=== PATIENT | female | born 1985 | race Hispanic/Latino ===

== ENCOUNTER 2020-01-22 09:08 | Outpatient (CLI) | payer OTHER, SELFPAY ==
--- NOTE | 2020-01-22 09:30 | NEURO_ITS ---
TEST: ELECTROENCEPHALOGRAM DIAGNOSIS: SEIZURE DISORDER PATIENT NUMBER: [id number] EEG NUMBER: [id number] RECORDING DATE: 01/22/20 CLINICAL HISTORY: Patient has history of seizures. She has not had a seizure in 13 years. She has been off of seizure meds for 10 months due to with no issues. CONDITION OF RECORDING: Awake, drowsy and sleep EEG DESCRIPTION: Basic resting occipital frequency consists of moderate amount of poorly organized low voltage 8-10hz alpha mixed with low voltage 15-18hz beta. Photic stimulation produced normal drive. Hyperventilation produced normal and symmetrical build-up. During drowsiness low voltage beta activity is seen diffusely mixed with waxing and waning posterior alpha rhythms. Bilateral symmetrical sleep activity is seen during sleep. Nonparoxysmal. Nonfocal. Nonlateralizing. IMPRESSION: Questionably abnormal record due to intermittent theta activity bilaterally. There is no evidence of paroxysmal discharges. Clinical correlation recommended. [facility]
== END 2020-01-22 09:09 | disposition home or self-care (01) ==
PROVIDERS: PCP Registered Nurse; Visit Provider Psychiatry & Neurology Neurology
DX: G40.909 Epilepsy, unspecified, not intractable, without status epilepticus (principal)
CPT/HCPCS: 95816

== ENCOUNTER 2022-10-04 12:53 | Emergency (ER) | payer OTHER, SELFPAY ==
[2022-10-04 13:01] VITALS: BP 93/70; PULSE 80; RESP 20; TEMP 37.2; O2SAT 100
--- NOTE | 2022-10-04 13:02 | ED.URI ---
HPI - URI/Sore Throat General Chief Complaint: Upper Respiratory Infection Stated Complaint: Weakness, Fever Time Seen by Provider: 10/04/22 13:03 Source: patient, RN notes reviewed and old records reviewed Mode of arrival: ambulatory Limitations: no limitations History of Present Illness HPI Narrative: 37-year-old female presents to the [facility] with concerns for feeling hot through out her body, shaky legs and requesting to have blood work done Related Data Home Medications Medication Instructions Recorded Confirmed norethindrone (contraceptive) 0.35 mg 10/04/22 mg tablet Allergies Allergy/AdvReac Type Severity Reaction Status Date / Time No Known Allergies Allergy Verified 10/04/22 13:00 Review of Systems Review of Systems: All systems reviewed & are unremarkable except as noted in HPI and below Constitutional: Constitutional: Reports as per HPI and Reports body ache(s) Eyes: Eyes: Reports no additional eye complaints ENT: Reports system reviewed and no additional complaints, except as documented Cardiovascular: Cardiovascular: Reports no additional cardiovascular complaints, Denies chest pain and Denies dyspnea Respiratory: Respiratory: Reports no additional respiratory complaints, Denies chest congestion, Denies cough and Denies dyspnea Gastrointestinal: Gastrointestinal: Reports no additional gastrointestinal complaints, Denies abdominal pain, Denies nausea and Denies vomiting Musculoskeletal: Musculoskeletal: Reports no additional musculoskeletal complaints Integumentary/Breasts: Skin/Breast: Reports system reviewed and no additional complaints, except as docu Neurologic: Reports system reviewed and no additional complaints, except as documented Psychiatric: Psychiatric: Reports no additional psychiatric complaints Allergic/Immunologic: Allergic/Immunologic: Reports no additional allergic/immunologic complaints PMFSH Social History Social History Smoking status: Never smoker Alcohol intake: never Comments At the time of my signature, I reviewed and agree with the nursing past medical, surgical, social, and family history. There is no relevant family history pertinent to the patient complaint. Exam Const: General: cooperative, healthy appearing, comfortable, no acute distress, well developed, alert and well nourished Nutritional Appearance: well nourished Orientation/consciousness: patient oriented x3 Limitations: no limitations HENMT: Head: normal to inspection Ears: hearing grossly normal bilaterally and external ears normal Face/Nose/Sinus: Normal external nose present, Normal nares present, Normal nasal mucous membranes and turbinates present and normal facial exam Face and sinus: normal facial exam Mouth: Yes Normal oral and palatal mucosa present, Yes lip normal and Yes moist mucous membranes Throat: posterior oropharynx normal and uvula midline Eyes: General: appearance normal, both eyes and all related structures Alignment and Position: alignment normal Periorbital: periorbital findings normal Conjunctivae: conjunctivae normal Pupils: Equal, round and reactive pupils present EOM: EOMs intact bilaterally Neck: Neck: normal visual inspection, full ROM, no lymphadenopathy and no meningeal signs Chest: Chest palpation & inspection: normal inspection of the chest Resp: Effort & Inspection: normal respiratory effort and able to speak in complete sentences Auscultation: clear to auscultation bilaterally, no crackles, no rales, no rhonchi and no wheezes Cardio: Rate: regular rate Rhythm: regular rhythm Back/Spine/Pelvis: Cervical Spine: cervical ROM normal Thoracic/Lumbar Spine: No thoracic spinal tenderness Skin: General skin exam: normal color and no rashes or lesions noted Lesions: no lesions Rashes: no rashes Wounds: no wounds Neuro: General: patient oriented x3, gait normal, tone normal, moves all extremities
== END 2022-10-04 13:16 | disposition home or self-care (01) ==
PROVIDERS: Emergency Provider Nurse Practitioner; PCP Registered Nurse
DX: R52 Pain, unspecified (principal)
CPT/HCPCS: 99211; G0463

== ENCOUNTER 2022-11-01 06:34 | Outpatient (CLI) | payer OTHER, SELFPAY ==
--- NOTE | 2022-11-01 10:12 | WPDNEUROLOGY ---
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 Bilateral symmetrical sleep activity seen during sleep. Photic stimulation produced normal drive. Hyperventilation not done. Non paroxysmal. Nonfocal. Nonlateralizing. IMPRESSION No significant abnormalities noted
== END 2022-11-01 06:35 | disposition home or self-care (01) ==
LOC: ANHNEURO 06:36
PROVIDERS: PCP Registered Nurse; Visit Provider Psychiatry & Neurology Neurology
DX: G40.909 Epilepsy, unspecified, not intractable, without status epilepticus (principal)
CPT/HCPCS: 95816

== ENCOUNTER 2024-02-27 14:52 | Outpatient (CLI) | payer OTHER, SELFPAY ==
--- NOTE | ~2024-02-27 | MM_ITS ---
EXAMINATION: MM screening rachel BI w cheli HISTORY: Screening TECHNIQUE: Craniocaudal and mediolateral oblique 3-D tomosynthesis images were obtained and synthetic 2-D images were generated. CAD analysis was submitted and interpreted. COMPARISON: No prior mammogram is available for comparison at this institution. BREAST PARENCHYMAL COMPOSITION: There are scattered areas of fibroglandular density. FINDINGS: There is no evidence of suspicious mass, calcification, or architectural distortion to sugg est malignancy in either breast. There has been no suspicious interval change. IMPRESSION: 1. No mammographic evidence of malignancy. 2. Recommend routine screening mammography in one year. BI-RADS Category 1: Negative Reviewed, dictated and finalized at location B.
== END 2024-02-27 14:53 | disposition home or self-care (01) ==
LOC: ANHIMG 14:52
PROVIDERS: PCP Registered Nurse; Visit Provider Physician Assistant
DX: Z12.31 Encounter for screening mammogram for malignant neoplasm of breast (principal)
CPT/HCPCS: 77063; 77067

== ENCOUNTER 2024-03-26 08:27 | Emergency (ER) | payer OTHER, SELFPAY ==
[2024-03-26 08:40] VITALS: BP 114/69; PULSE 75; RESP 16; TEMP 36.4; O2SAT 99
--- NOTE | 2024-03-26 08:43 | ED.URI ---
HPI - URI/Sore Throat General Chief Complaint: Upper Respiratory Infection Stated Complaint: drainage in nose. Mole on left side of face Time Seen by Provider: 03/26/24 08:42 Source: patient and poiser Mode of arrival: ambulatory Limitations: no limitations History of Present Illness HPI Narrative: Anne is a 38-year-old female patient presenting to the clinic today with complaints of draining in her nose and a possible mold to the left side of her face. She reports that draining in her nose is been going on for approximately 2 weeks. No fever, chills, body aches, sore throat. Reports some clear nasal drainage and that her nose feels dry. Does have an occasional nonproductive cough. Also concerned about a skin tag to the left side of face. Had an appointment with her primary care doctor this morning however they missed the appointment so that prompted them to come into the [facility] today. MD elicited complaint: cough and nasal congestion Related Data Home Medications Medication Instructions Recorded Confirmed norethindrone (contraceptive) 0.35 mg 10/04/22 01/28/24 mg tablet Allergies Allergy/AdvReac Type Severity Reaction Status Date / Time No Known Allergies Allergy Verified 03/26/24 08:44 Review of Systems Review of Systems: Pertinent positives per HPI. Patient denies any fever, chills, rash, headache, visual changes, dizziness, cough, shortness of breath, chest pain, palpitations, nausea, vomiting, diarrhea, constipation, abdominal pain, or any urinary issues. 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 Social History Social History Smoking status: Never smoker Alcohol intake: never Substance use: never Substance use type: does not use Do You Feel Safe in your Home?: Yes Lack of Transportation: No Lack of Food: Never True Current Housing: I Have Housing Concerned About Future Housing: No Difficulty Paying Gas/Electric Bills: No Difficulty Paying for Meds: No Currently Unemployed: No Education: High School Diploma/GED Difficulty w/ Childcare or Family Care: No Living arrangements: with family Gender identity (if verbalized by the patient): Female Comments At the time of my signature, I reviewed and agree with the nursing past medical, surgical, social, and family history. There is no relevant family history pertinent to the patient complaint. Exam Narrative: General: Well-developed, well nourished, in no apparent distress Head: Normocephalic, atraumatic Eyes: Pupils equally round and reactive to light bilaterally, EOM intact, sclera and conjunctive clear, no discharge, lids normal Ears: TMs intact and clear, ear canals clear, no drainage, grossly hearing normal. Nose: Nares patent, clear discharge, moderate inflammation, no sinus tenderness. Mouth: Oral pharynx without lesions or masses, good dentition, MMM. Neck: Supple, trachea midline, no enlargement of anterior or posterior cervical nodes, no thyroid masses or goiter palpable. Cardio: Regular rate and rhythm, s1 and s2 normal, no murmur appreciated. Resp: Clear to auscultation bilaterally, no rhonchi, rales, wheezing or rubs Integumentary: [place], warm, and dry, skin tag to the left cheek Course Course Emergency Course: Portions of this record may have been created with voice recognition software. Level of Care: Express Care Visit Vital Signs Vital signs: Vital Signs Temperature 36.4 C 03/26/24 08:40 Pulse Rate 75 03/26/24 08:40 Respiratory Rate 16 03/26/24 08:40 Blood Pressure 114/69 03/26/24 08:40 Pulse Oximetry 99 03/26/24 08:40 Oxygen Delivery Room Air 03/26/24 08:40 Temperature 36.4 C 03/26/24 08:40 Pulse Rate 75 03/26/24 0
== END 2024-03-26 09:14 | disposition home or self-care (01) ==
PROVIDERS: Emergency Provider Nurse Practitioner Family; PCP Physician Assistant
DX: L91.8 Other hypertrophic disorders of the skin (principal); J30.9 Allergic rhinitis, unspecified
CPT/HCPCS: 99213; G0463

== ENCOUNTER 2025-03-04 10:08 | Outpatient (CLI) | payer OTHER, SELFPAY ==
--- OUTSIDE RECORDS SUMMARY | 2025-03-04 10:49 | XMS_ITS | Encounter Summary ---
Author Organization [facility] Address [address] [place] [address] Care Team Providers Care Ict Educator Name Role Phone Sanjeev Walter MD Primary Care Provider + [phone] Reason for Visit * Reason Onset Date Comments Results 02/19/2025 Encounter Details Date Type Department Care Team (Late st Contact Info) Description 02/19/2025 Results Follow-Up [facility] [address] [place] [address] Zee Gupta MD [address] [place] [address] Results Social History Tobacco Use Types Packs/Day Years Used Date Smoking Tobacco: Never Smokeless Tobacco: Never Alcohol Use Standard Drinks/Week Comments No 0 (1 standard drink = 0.6 oz pur e alcohol) Overall Financial Resource Strain (CARDIA) Answe r Date Recorded How hard is it for you to pa y for the very basics like food, housing, medical care, and heating? Not very hard 02/15/2025 [facility] of Occupat ional Health - Occupational Stress Questionnaire Answer Date Recorded Do you feel stress - tense, restless, nervous, or anxious, or unable to sleep at night because your mind is troubled all the time - these days? Not at all 02/15/2025 Hunger Vital Sign Answer Date Recorded Within the past 12 months, y ou worried that your food would run out before you got the money to buy more. Never true 02/16/20 25 Within the past 12 months, t he food you bought just didn't last and you didn't have money to get more. Never true 02/15/2025 PRAPARE - Transportation Answer Date Re corded In the past 12 months, has l ack of transportation kept you from medical appointments or from getting medications? No 10/2024 In the past 12 months, has l ack of transportation kept you from meetings, work, or from getting things needed for daily living? No 02/15/2025 [place] Depression Scale Answer Date Recorded [place] Depression Scale Total 0 02/15/2025 The thought of harming myself has occurred to me . Never 02/15/2025 Housing Stability Vital Sign Answer Shawn e Recorded In the last 12 months, was t here a time when you were not able to pay the mortgage or rent on time? No 02/15/2025 In the past 12 months, how m any times have you moved where you were living? 1 02/15/2025 At any time in the past 12 m onths, were you homeless or living in a fpc (including now)? No 02/15/2025 Estimated Date of Delivery Comme nts Yes 09/07/2025 Based on Ultraso und Sex and Gender Information Value Date Recorded Sex Assigned at Not on file Legal Sex Female 6:26 AM CLINICAL RECRUITER Gender Identity Not on file Sexual Orientation Not on file documented as of this encounter Functional Status * Is person deaf or have serious hearing difficulty? Answer Date of Assessment Author No 12/21/2019 1:30 PM Mariluz Swan RN * Is person blind or have serious difficulty seeing? Answer Date of Assessment Author No 12/21/2019 1:30 PM Mariluz Swan RN * Does person have serious difficulty walking/climbing stairs? Answer Date of Assessment Author No 12/21/2019 1:30 PM MAKEDAT Mariluz Koroma RN * Does person have difficulty dressing/bathing? Answer Date of Assessment Author No 12/21/2019 1:30 PM Mariluz Swan RN * Does person have difficulty doing errands alone? Answer Date of Assessment Author No 12/21/2019 1:30 PM Mariluz Swan RN documented as of this encounter Mental Status * Does person have difficulty concentrating/remembering/making decisions? Answer Entry Date Author No 12/21/2019 1:30 PM CDT Mariluz Koroma RN documented in this encounter Progress Notes * Zee Gupta MD - 02/23/2025 3:01 PM CDT PGY-3 Telephone Note LAMP telephone manager ethics used. Notified patient of normal pap results and recommendation for repeat co-testing in 5 years. Continues to deny dysuria, hematuria, urinary frequency. Treatment of bacteriuria not indicated at this time. Zee Gupta MD 02/23/2025 3:00 PM documented in this encounter Plan of Treatment Upcoming Encounters Date Type Department Care Team (Late st Contact Info) Description 03/18/2025 9:00 AM CDT Appointment [facility] [address] [place] [address] [address] [place] [id number] 03/18/2025 10:00 AM CDT Appointment [facility] [address] [place] [address] [address] [place] [address] 04/19/2025 7:30 AM CDT Appointment [facility] [address] [place] [address] [address] [place] [address] documented as of this encounter Visit Diagnoses Not on filedocumented in this encounter Care Teams Ict Educator Relationship Specialty Start Date End Date Sanjeev Walter MD PCP - General Internal Medicine 12/30/17 documented as of this encounter
--- OUTSIDE RECORDS SUMMARY | 2025-03-04 10:49 | XMS_ITS | Clinical Summary ---
Author Organization [facility] Address [address] [place] [address] Care Team Providers Care Dress Fitter Name Role Phone Juan Vargas MD Primary Care Provider [phone] Allergies No known active allergies Medications levETIRAcetam (KEPPRA) 500 mg tablet Take 1.5 tablets (750 mg total) by mouth 2 (two) times a day 90 tablet 5 08/28/2022 Active Active Problems Problem Noted Date Diagnosed Date Arteriovenous disorder 11/24/2008 Social History Tobacco Use Types Packs/Day Years Used Date Smoking Tobacco: Never Personal Safety Answer Date Recorded Getting School Help Needed Not on file 09/09 Comments Unknown Sex and Gender Information Value Date Recorded Sex Assigned at Not on file Legal Sex Female 5:41 AM HOSPICE CLINICAL SUPERVISOR Gender Identity Not on file Sexual Orientation Not on file Obstetrics History Last Filed Vital Signs Vital Sign Reading Time Taken Comments Blood Pressure 116/68 08/28/2022 8:30 AM HOSPICE CLINICAL SUPERVISOR Pulse 91 08/28/2022 8:30 AM HOSPICE CLINICAL SUPERVISOR Temperature 36.8 C (98.3 F) 08/28/2022 5:21 AM HOSPICE CLINICAL SUPERVISOR Respiratory Rate 19 08/28/2022 8:30 AM HOSPICE CLINICAL SUPERVISOR Oxygen Saturation 96% 08/28/2022 8:30 AM HOSPICE CLINICAL SUPERVISOR Inhaled Oxygen Concentration - - Weight 77 kg (169 lb 12.1 oz) 08/28/2022 5:25 AM HOSPICE CLINICAL SUPERVISOR Height 157.5 cm (5' 2) 09/05/2013 9:21 PM HOSPICE CLINICAL SUPERVISOR Body Mass Index 31.05 09/05/2013 9:21 PM HOSPICE CLINICAL SUPERVISOR Plan of Treatment Health Maintenance Due Date Last Done Comments Breast Cancer Screening-Mammogram 1983 Cervical Cancer Screening 1983 Depression Screening 1983 Hepatitis C Screening 1983 Varicella Vaccines (1 of 2 - 13+ 2-dose series) 1996 Hepatitis B Screening 2001 Regular Well Visit/Exam 18-64 2001 HPV Vaccines (1 - 3-dose SCD M series) 2010 Influenza Vaccine (#1) 2025 09/03/2019 DTaP/Tdap/Td Vaccine (3 - Td or Tdap) 09/30/2029 10/01/2019, 09/19/2017 Pneumococcal vaccine <65 Aged Out No longer eligible based on patient's age to complete this topic Insurance [facility] Care Teams Dress Fitter Relationship Specialty Start Date End Date Juan Vargas MD [id number] [address] PCP - General Neurology 08/27/22
--- OUTSIDE RECORDS SUMMARY | 2025-03-04 10:49 | XMS_ITS | Clinical Summary ---
Author Organization [employer] Address [address] 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 This disclosure is being madepursuant to the Care Everywhere program and may not contain all information available regarding this patient. Last updated 18.[employer] Allergies No known active allergies Medications * Be aware that medications may not be up to date on this document. Alwaysverify current medications with the patient. docusate sodium (COLACE) 100 MG capsule Take 1 capsule by mouth 2 times daily 60 capsule 1 8 Active Vit-Fe Fumarate-FA ( LOW IRON) tablet Take 1 tablet by mouth once daily 100 tablet 5 0 Active acetaminophen (TYLENOL) 500 MG tablet Take 1 (one) tablet by mouth every 6 hours as needed (cold sinus) Maximum allowable Acetaminophen amount = 4 Grams (4000 mg) / 24 hours. Active ibuprofen (MOTRIN) 600 MG tablet Take 1 tablet by mouth every 6 hours as needed for Pain 50 tablet 0 Active Additional Information Patient not taking.Reported on 01/29/2020 levETIRAcetam (KEPPRA) 500 MG tablet Take 500 mg by mouth 2 times daily Active levETIRAcetam (Keppra) 750 MG tablet Take 1 (one) tablet by mouth 2 times daily Active folic acid (Folvite) 1 MG tablet Take 1 (one) tablet by mouth once daily Take five tablets by mouth once daily Active aspirin EC (Ecotrin) 81 MG tablet Take 2 tablets (162mg) by mouth daily for pre-eclampsia prevention. 90 tablet 3 5 Active plus iron (Natatab) 29-1 MG tablet Take 1 (one) tablet by mouth once daily 90 tablet 3 5 Active Active Problems Patient Care Coordination No te Formatting of this note migh t be different from the original. [facility] 09/201710/15/19 Enrolled in diaper program form completed and diapers given 11/25/19 Diaper bank form completed. Diapers provided. 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 AVM resolved on subsequent imaging. Filipino speaking patient 09/19/2017 Obesity affecting in second trimester Advanced maternal age in multigravida, third tri mester 38 weeks gestation of Estimated Date of Delivery Comme nts Yes 09/07/2025 Based on Ultraso und Resolved Problems Problem Noted Date Diagnosed Date Resolved Date Threatened labor at term 11/13/2017 Stroke 09/19/2017 12/03/2019 Obesity 09/19/2017 09/03/2019 Chlamydia 09/19/2017 09/03/2019 Encounters Date Type Department Care Team Description 02/22/2025 Telephone [facility]NAL/ EVALUATION UNIT [address] [place], [place] [id number] Jaymie To RN Results 02/19/2025 Results Follow-Up [facility]/ EVALUATION UNIT [address] [place], [place] [id number] Zee Gupta MD Results 02/17/2025 Telephone [facility]/ EVALUATION UNIT [address] [place] [address] Lizbeth Madrigal Appointment 02/15/2025 7:54 AM CDT - 02/15/2025 11:59 PM CDT Hospital Encounter [facility]/ EVALUATION UNIT [address] [place] [address] Armando Joshi MD Discharge Disposition: Home or Self Care 02/15/2025 7:30 AM CDT - 02/15/2025 7:53 AM CDT Hospital Encounter [facility] MAT[facility]/ EVALUATION UNIT [address] [place] [address] Duran Mc MD Discharge Disposition: Home or Self Care 02/05/2025 Telephone [facility] MAT[facility]NAL/ EVALUATION UNIT [address] [place] [address] Lizbeth Madrigal Appointment 02/03/2025 Telephone [facility] MAT[facility]NAL/ EVALUATION UNIT [address] [place] [address] Janie Leach, barley steeper from Last 3 Months Immunizations Immunization Administration Dates Next Due INFLUENZA VACCINE, QUADR. (F LUZONE; FLULAVAL; FLUARIX; AFLURIA QUADRIVALENT; 6MO+), 0.5 ML (IIV4) 09/03/2019 MMR 12/23/2019(Deferred: See Comments - Rubella Immune) TDAP (7yrs+) 10/01/2019,09/19/2017 Social History Tobacco Use Types Packs/Day Years [...] care, and heating? Not very hard 02/15/2025 [facility] of Occupat ional Health - Occupational Stress [...] things needed for daily living? No 02/15/2025 [place] Depression Scale Answer Date Recorded [place] Depression Scale Total 0 02/15/2025 The thought [...] any time in the past 12 m [facility], were you homeless or living in a chcf (including now)? 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 Gender Identity Not on file Sexual Orientation Not on file Last Filed Vital Signs Vital Sign Reading Time Taken Comments Blood Pressure 107/64 02/15/2025 8:55 AM CDT Pulse 69 02/15/2025 8:55 AM CDT Temperature 36.4 C (97.6 F) 01/29/2020 8:34 AM CDT 97.4 visitor Respiratory Rate 18 01/29/2020 8:34 AM CDT Oxygen Saturation 100% 12/24/2019 8:30 AM CDT Inhaled Oxygen Concentration - - Weight 73.5 kg (162 lb) 02/15/2025 8:55 AM CDT Height 155.4 cm (5' 1.2) 02/15/2025 8:55 AM CDT Body Mass Index 30.41 02/15/2025 8:55 AM CDT Plan of Treatment Upcoming Encounters Date Type Department Care Team (Ernesto st Contact Info) Description 03/18/2025 9:00 AM CDT Appointment [facility]NAL/ EVALUATION UNIT [address] [place] [address] 03/18/2025 10:00 AM CDT Appointment [facility]/ EVALUATION UNIT [address] [place] [address] 04/19/2025 7:30 AM CDT Appointment [facility]/ EVALUATION UNIT [address] [place] [address] [address] [place] [address] Health Maintenance Due Date Last Done Comments LIPID TESTING 1983 MAMMOGRAM 1983 HEPATITIS B VACCINE (1 of 3 - 19+ 3-dose series) 2002 HPV VACCINE (1 - 3-dose SCDM series) 2010 COVID-19 VACCINE ( - season) 2024 INFLUENZA VACCINE (#1) 2025 , 09/03/2019, 07/28/2014 OB-ONE HOUR GLUCOSE 06/01/2025 10/02/2019, 10/01/2019, 10/03/2017, Additional history exists OB-TDAP CURRENT 06/08/20252019, 10/01/2019, 09/19/2017 Respiratory Syncytial Virus (RSV) Vaccine Pt: or over 60 yrs (1 - Risk 1-dose series) 07/13/2025 OB-GROUP B STREP SCREEN 08/03/2025 12/03/2019, 11/07 DTAP/TDAP/TD VACCINES (3 - Td or Tdap) 09/30/2029 10/01/2019, 09/19/2017 PAP with HPV 02/15/2030 02/15/2025, 09/19/2017 ZOSTER VACCINE (1 of 2) 2033 DEPRESSION SCREENING Completed 02/15/2025 HEPATITIS C SCREENING Completed 02/15/2025 HIV SCREENING Completed 02/15/2025, 09/12, 08/05/2019, Additional history exists HIB VACCINE Aged Out No longer eligi ble based on patient's age to complete this topic MENINGOCOCCAL (Group B) VACCINE SHARED DECISION-MAKING Aged Out No longer eligible based on patient's age to complete this topic MENINGOCOCCAL GROUPS A/C/Y/W VACCINE Aged Out No longer eligible based on patient's age to complete this topic PNEUMOCOCCAL VACCINE Aged Out No long er eligible based on patient's age to complete this topic Procedures Procedure Name Priority Date/Time Associated Diagnosis Comments PAP IG LB+HPV APTIMA Routine 02/15/2025 10:40 AM CDT Supervision of high risk in third trimester ([facility]) CULTURE URINE Routine 02/15/2025 10:40 AM CDT Supervision of high risk in third trimester ([facility]) TRICHOMONAS VAGINALIS ROBYN Routine 02/15/2025 10:40 AM CDT Supervision of high risk in third trimester ([facility]) CHLAMYDIA AND N. GONORRHOEAE ROBYN Routine 02/15/2025 10:40 AM CDT Supervision of high risk in third trimester ([facility]) TYPE + SCREEN PANEL Routine 02/15/2025 1 0:38 AM CDT Supervision of high risk in third trimester ([facility]) RUBELLA ANTIBODY IGG Routine 02/15/2025 10:38 AM CDT Supervision of high risk in third trimester ([facility]) SYPHILIS ANTIBODY CASCADING REFLEX Routine 02/15/2025 10:38 AM CDT Supervision of high risk in third trimester ([facility]) CBC W AUTO DIFFERENTIAL Routine 02/15/2025 10:38 AM CDT Supervision of high risk in third trimester ([facility]) HEPATITIS B SURFACE ANTIGEN W RFLX CONFIRMATION Routine 02/15/2025 10:38 AM CDT Supervision of high risk in third trimester ([facility]) HEPATITIS B SURFACE ANTIGEN W RFLX CONFIRMATION Routine 02/15/2025 10:38 AM CDT Supervision of high risk in third trimester (HCC) HIV-1 HIV-2 ANTIBODY + HIV P24 AG PANEL Routine 02/15/2025 10:38 AM CDT Supervision of high risk in third trimester (HCC) HEMOGLOBIN A1C Routine 02/15/2025 10:38 AM CDT Supervision of high risk in third trimester ([facility]) HEPATITIS C ANTIBODY Routine 02/15/2025 10:38 AM CDT Supervision of high risk in third trimester ([facility]) FERRITIN Routine 02/15/2025 10:38 AM CDT Supervision of high risk in third trimester ([facility]) INHERITEST CF/SMA PANEL Routine 02/15/2025 10:38 AM CDT Supervision of high risk in third trimester ([facility]) URINALYSIS - POCT (IP) BEAKER INTERFACE Routine 02/15/2025 8:59 AM CDT SONOGRAM - COMPLETE Routine 02/15/2025 8 :24 AM CDT Encounter to establish gestational age using ultrasound ([facility]) ANEUPLOIDY SCREENING Routine 02/15/2025 CULTURE STREP B Routine 12/03/2019 9:40 AM CDT , unspecified gestational age GTT 3 HR (100G) GESTATIONAL DIAGNOSTIC Routine 10/02/2019 8:34 AM CDT Elevated blood sugar from Last 3 Months or Most Recently Relevant to Health Maintenance Results * TRICHOMONAS VAGINALIS ROBYN (02/15/2025 10:40 AM CDT) Trichomonas by ROBYN NEGATIVE NEGATIVE 02/15/2025 8:54 PM CDT [facility] MICROBIOLOG[facility] Microbiology ENTIRE VAGINA / Unknown Collection / Unknown 02/15/2025 10:40 AM CDT 02/15/2025 11:12 AM CDT Narrative [facility] MICROBIOLOGY - 02/15/2025 8:54 PM CDT This test performed by Qualitative real-time Polymerase Chain Reaction (PCR). Armando Joshi MD LAB - MICROBIOLOGY ORDERABLES Final Result Performing Organization Address [facility] de Phone Number [facility] MICROBIOLOGY [address] [place] [address], [facility] [phone] * CHLAMYDIA AND N. GONORRHOEAE ROBYN (02/15/2025 10:40 AM CDT) Chlamydia by ROBYN NEGATIVE NEGATIVE 02/15/2025 8:54 PM CDT [facility] MICROBIOLOGY Neisseria gonorrhoeae ROBYN NEGATIVE NEGATIVE 02/15/2025 8:54 PM CDT [facility] MICROBIOLOGY Microbiology ENTIRE VAGINA / Unknown Collection / Unknown 02/15/2025 10:40 AM CDT 02/15/2025 11:12 AM CDT [facility] MICROBIOLOGY - 02/15/2025 8:54 PM CDT This test performed by Qualitative real-time Polymerase Chain Reaction (PCR). Armando Joshi MD LAB - MICROBIOLOGY ORDERABLES Final Result Performing Organization Address [facility] Phone Number [facility] MICROBIOLOGY [address] [place] [address], [facility] [phone] * PAP IG LB+HPV APTIMA (02/15/2025 10:40 AM CDT) Diagnosis Comment 02/17/2025 2:10 PM CDT [facility] ([facility]) Comment:NEGATIVE FOR INTRAEP ITHELIAL LESION OR MALIGNANCY. Specimen Adequacy Comment 2:10 PM CDT [facility] ([facility]) Comment: Satisfactory for evaluation. Endocervical and/or squamous metaplastic cells (endocervical component) are present. Performed by Comment 02/17/2025 2:10 PM CDT [facility] ([facility]) Comment:Miri Cisneros Cyto logist (ASCP) Comment . 02/17/2025 2:10 PM CDT [facility] ([facility]) Note Comment 02/17/2025 2:10 PM CDT [facility] ([facility]) Comment: The Pap smear is a screening test designed to aid in the detection of premalignant and malignant conditions of the uterine cervix. It is not a diagnostic procedure and should not be used as the sole means of detecting cervical cancer. Both false-positive and false-negative reports do occur. [facility] CPT Code Automation Comment 02/17/2025 2:10 PM CDT [facility] ([facility]) Comment: This liquid based ThinPrep(R) pap test was screened with the use of an image guided system. Human papillomavirus Aptima Negative Negative 02/17/2025 2:10 PM CDT [facility] ([facility]) Comment: This nucleic acid amplification test detects fourteen high-risk HPV types (16,18,31,33,35,39,45,51,52,56,58,59,66,68) without differentiation. Pathology/Cytolo gy ENTIRE ENDOCERVIX / Unknown Collection / Unknown 02/15/2025 10:40 AM CDT 02/15/2025 11:13 AM CDT Narrative [facility] ([facility]) - 02/17/2025 2:10 PM CDT Performed at: [address] [id number] Automobile Drivers: Soni Dennis MD, Phone: [phone] Performed at: 02 - [address] [id number] Automobile Drivers: Soni Dennis MD, Phone: [phone] Specimen Comment: Source.............Cervix;Endocervix Specimen Comment: No. of containers..01 ThinPrep Vial us Armando Joshi MD LAB - PATHOLOGY/CYTOLOGY ORDER BERYL Final Result [facility] ([facility]) [address] [place] [address] * (ABNORMAL) CULTURE URINE (02/15/2025 10:40 AM CDT) Culture Urine 50,000-100,000 CFU/mL Proteus mirabilis(A) JONATHAN 02/17/2025 12:34 AM CDT [facility] MICROBIOLOGY Culture Urine 10,000-50,000 CFU/mL urogenital chaka JONATHAN 02/17/2025 12:34 AM T [facility] MICROBIOLOGY Urine URINE SPECIMEN OBTAINED BY CLEAN CATCH PROCEDURE / Unknown Collection / Unknown 02/15/2025 10:40 AM CDT 02/15/2025 11:12 AM CDT Narrative Organism Antibiotic Method Susceptibility Proteus mirabilis Amikacin JONATHAN 4 ug/mL: Susceptible Proteus mirabilis Ampicillin JONATHAN <=2 ug/mL: Susceptible Proteus mirabilis Ampicillin-sulbactam JONATHAN <=2 ug/mL: Susceptible Proteus mirabilis Cefazolin JONATHAN <=4 ug/mL: See Comment* Proteus mirabilis Cefazolin-Urine (uncomplicated infections ONLY) JONATHAN <=4 ug/mL: Susceptible Proteus mirabilis Cefepime JONATHAN <=1 ug/mL: Susceptible Proteus mirabilis Ceftriaxone JONATHAN <=1 ug/mL: Susceptible Proteus mirabilis Ciprofloxacin JONATHAN <=0.25 ug/mL: Susceptible Proteus mirabilis Gentamicin JONATHAN <=1 ug/mL: Susceptible Proteus mirabilis Meropenem JONATHAN <=0.25 ug/mL: Susceptible Proteus mirabilis Piperacillin-tazobactam JONATHAN <=4 ug/mL: Susceptible Proteus mirabilis Tobramycin JONATHAN <=1 ug/mL: Susceptible Proteus mirabilis Trimethoprim-sulfame thoxa zole JONATHAN <=20 ug/mL: Susceptible Comment: *Cefazolin JONATHAN of </=4 cannot distinguish between susceptible or intermediate for systemic breakpoints. If further defined interpretation is needed, call Microbiology and a disk diffusion test will be performed. Urine breakpoints for cefazolin should only be used when treating uncomplicated UTIs including men and women without urologic abnormality, kidney stones, stents, nephrostomy tubes, signs/symptoms of systemic illness, or pelvic/perineal pain in men. Cefazolin results can be used to predict susceptibility to oral cephalosporins - cephalexin, cefprozil, cefaclor, cefuroxime, cefdinir, and cefpodoxime. For complicated UTIs, use alternative cefazolin susceptibility result above. us Armando Joshi MD LAB - MICROBIOLOGY ORDERABLES Final Result [facility]CRO[facility] [address] [place], [place] [address], [facility] [phone] * INHERITEST CF/SMA PANEL (02/15/2025 10:38 AM CDT) CF/SMA Genes Comment 02/25/2025 5:10 PM CDT [facility] ([facility]) Comment:2 genes CF/SMA Ethnicity Comment 02/26/20 5:10 PM CDT [facility] ([facility]) Comment:Not Provided CF/SMA Specimen Type Comment 02/25/2025 5:10 PM CDT [facility] ([facility]) Comment:Whole Blood CF/SMA Indication Comment 025 5:10 PM CDT [facility] ([facility]) Comment:Carrier Test / Scree rosamaria CF/SMA Result Comment 02/25/2025 5:10 PM CDT [facility] ([facility]) Comment:NEGATIVE CF/SMA Interpretation Comment 02/25/2025 5:10 PM CDT [facility] ([facility]) Comment: Negative Results Disorders (Gene) Result Interpretation Cystic fibrosis NEGATIVE This result reduces, CFTR [id number] but does not eliminate, the risk to be a carrier. Risk: NOT at an increased risk for an affected . Spinal muscular NEGATIVE : 3 This result reduces, atrophy SMN1 (or more) but does not [id number] copies of eliminate, the risk SMN1. to be a carrier. Risk: NOT at an increased risk for an affected . CF/SMA Recommendations Comment 02/25/2025 5:10 PM CDT [facility] ([facility]) Comment: If the above result is positive, genetic counseling is recommended to discuss the potential clinical and/or reproductive implications, as well as recommendations for testing family members and, when applicable, this individual's partner. Genetic counseling services are available. To access [facility] Genetic Counselors please visit [email or web address] or call [phone] ([phone]). CF/SMA Comments Comment 5:10 PM CDT [facility] ([facility]) Comment: This interpretation is based on the clinical information provided and the current understanding of the molecular genetics of the disorder(s) tested. Information about the disorder(s) tested is available at [email or web address]. CF/SMA Methods and Limitations Comment 02/25/2025 5:10 PM CDT [facility] ([facility]) Comment: Next-generation Sequencing (NGS): Genomic regions of interest are selected using the TransLattice(R) hybridization capture method and sequenced via the Prompt.ly(R) NGS platform. Sequencing reads are aligned to the human genome reference GRCh37/hg19 build. Regions of interest include coding exons, intron/exon junctions (typically +/- 20 nucleotides) and additional genomic regions with known significant pathogenic variants. Analytical sensitivity is estimated to be >99% for single nucleotide variants and small insertions/deletions. Variant detection is performed by [employer] and in-house algorithms. Single exon deletions or duplications can be detected in the CFTR gene with estimated overall analytical sensitivity >99%. Precise breakpoints are not reported. Single-exon deletions or duplications are not detected in some cases due to CNV size limitations, or due to isolated data quality variation or intrinsic sequence properties. Confirmatory testing by orthogonal technologies may include Claude sequencing, or MLPA analysis.Poly T/TG tract variants are reported only when classified as associated with CFTR-related disorders or when R117H is also present. Reported variants: Pathogenic and likely pathogenic variants are reported for all tests. Variants of uncertain significance are not reported for any Inheritest carrier panel or for Cystic Fibrosis Full-gene Carrier Screen. Variants of uncertain significance are reported with all GeneSeq PLUS test codes unless VUS opt out is selected. Benign and likely benign variants are not reported. Variants are specified using the numbering and nomenclature recommended by the Human Genome Variation Society (HGVS, http://www.hgvs.org/). Variant classification and confirmation are consistent with ACMG standards and guidelines (Sloan, PMID:17762194; Nathalie, PMID:52721972). Detailed variant classification information and variant reevaluation are available upon request. Spinal muscular atrophy: The copy number of SMN1 exon 7 is assessed relative to internal standard reference genes by quantitative polymerase chain reaction (qPCR). A mathematical algorithm calculates 0, 1, 2 and 3 copies with statistical confidence. In specimens and specimens with 0 or 1 copies, the primer and probe binding sites are sequenced to rule out variants that could interfere with copy number analysis. SMN2 copy number is assessed by digital droplet PCR analysis relative to an internal standard reference gene in samples with no copies of SMN1. For carrier screening, when two copies of SMN1 are detected, allelic discrimination qPCR targeting c.*3+80T>G in SMN1 is performed. Limitations: Technologies used do not detect germline mosaicism and do not rule out the presence of large chromosomal aberrations including rearrangements and gene fusions, or variants in regions or genes not included in this test, or possible inter/intragenic interactions between variants, or repeat expansions. Variant classification and/or interpretation may change number operator time if more information becomes available. False positive or false negative results may occur for reasons that include: rare genetic variants, sex chromosome abnormalities, pseudogene interference, blood transfusions, bone marrow transplantation, somatic or tissue-specific mosaicism, mislabeled samples, or erroneous representation of family relationships. This test was developed and its performance characteristics determined by [employer]. It has not been cleared or approved by the Food and Drug Administration. [employer] is a subsidiary of [employer], using the brand [employer] Expert. Inheritest(R) and GeneSeq(R) are registered service clemons of [employer]. CF/SMA References Comment 5:10 PM CDT [facility] ([facility]) Comment: Fish MART, Arleen M, Tavo S et al. Screening for autosomal recessive and X-linked conditions during and preconception: a practice resource of the [employer] (ACMG). Ella Med 23, 4077 (2020). PMID: [id number] CF/SMA Disorders Tested Comment 02/25/2025 5:10 PM CDT [facility] ([facility]) Comment: Cystic fibrosis (1 gene). Autosomal recessive: CFTR Spinal muscular atrophy (1 gene). Autosomal recessive: SMN1 CF/SMA Director Review Comment 02/25/2025 5:10 PM CDT [facility] ([facility]) Comment: Component Type Performed At Skid Machine Operator Technical Context Matters Brenda Johnson, PhD, component, [employer], FAC processing [facility], [place], [phone] Technical Context Matters Brenda Johnson, PhD, component, [employer], FACMG analysis [facility], [place], [phone] Professional [id number], Esoternicola Johnson, PhD, component Genetic [facility] [employer], [facility], [place], [address] Electronically released by Nithya Beltran, PhD, [facility] [facility] Blood BLOOD SPECIMEN / Unknown Venipuncture / Unknown 02/15/2025 10:38 AM CDT 02/15/2025 11:14 AM CDT Narrative [facility] ([facility]) - 02/25/2025 5:10 PM CDT Performed at: - [facility] [place], [place] [id number] Automobile Drivers: Brenda Johnson PhD, Phone: [phone] Armando Joshi MD LAB - CHEMISTRY ORDERABLES Ralf al Result Performing Organization Address City/[facility] Co de Phone Number [facility] ([facility]) [address] [place] [address] * SYPHILIS ANTIBODY CASCADING REFLEX (02/15/2025 10:38 AM CDT) Treponema pallidum Antibody Non Reactive Non Reactive 02/15/2025 11:59 AM CDT [facility] Comment: No Laboratory evidence of syphilis infection. Note: Circulating antibodies may be low or undetectable in early infection. If recent exposure is suspected, re-draw sample in 2-4 weeks and repeat testing. Blood BLOOD SPECIMEN / Unknown Venipuncture / Unknown 02/15/2025 10:38 AM CDT 02/15/2025 11:15 AM CDT Armando Joshi MD LAB - SEROLOGY ORDERABLES Chioma lind Result Performing Organization Address City/[facility]/ZIP Co de Phone Number [facility] [address] [place], [place] [phone] * HIV-1 HIV-2 ANTIBODY + HIV P24 AG PANEL (02/15/2025 10:38 AM CDT) HIV1/2 Ab + P24 Ag Non Reactive Non Reactive 02/15/2025 11:58 AM CDT [facility] Blood BLOOD SPECIMEN / Unknown Venipuncture / Unknown 02/15/2025 10:38 AM CDT 02/15/2025 11:15 AM CDT Narrative [facility] - 02/15/2025 11:58 AM CDT No Laboratory evidence of HIV infection. Armando Joshi MD LAB - CHEMISTRY ORDERABLES Fin al Result Performing Organization Address City/[facility]/ZIP Co de Phone Number [facility] [address] [place] [address] * RUBELLA ANTIBODY IGG (02/15/2025 10:38 AM CDT) Rubella Antibody 9.44 Immune >0.99 index 02/16/2025 8:11 AM CDT [facility] ([facility]) Comment: Non-immune <0.90 Equivocal 0.90 - 0.99 Immune >0.99 Blood BLOOD SPECIMEN / Unknown Venipuncture / Unknown 02/15/2025 10:38 AM CDT 02/15/2025 11:15 AM CDT Narrative [facility] ([facility]) - 02/16/2025 8:11 AM CDT Performed at: 01 - [address] [id number] Automobile Drivers: Amol Jain PhD, Phone: [phone] Armando Joshi MD LAB - SEROLOGY ORDERABLES Chioma l Result Performing Organization Address City/[facility] Co de Phone Number [facility] ([facility]) [address] [place] [address] * HEMOGLOBIN A1C (02/15/2025 10:38 AM CDT) Pathologist [facility] Hemoglobin A1c 5.3 <5.7 % 02/15/2025 11:51 AM CDT [facility] Estimated Average Glucose 105 mg/dL 02/15/2025 11:51 AM CDT [facility] Blood BLOOD SPECIMEN / Unknown Venipuncture / Unknown 02/15/2025 10:38 AM CDT 02/15/2025 11:16 AM CDT Narrative [facility] - 02/15/2025 11:51 AM CDT HbA1c Interpretation: Normal: < 5.7% Pre-diabetes: 5.7-6.4% Diabetes: Equal to or greater than 6.5% Test results diagnostic of diabetes should be repeated for confirmation. Treatment target values recommended by ADA and other clinical organizations should be used to evaluate metabolic control in patients. This test should not replace glucose testing for patients with Type 1 diabetes, pediatric patients, or women. Falsely low HbA1c results may be observed in patients with clinical conditions that shorten erythrocyte life span or decrease mean erythrocyte age such as the presence of unstable hemoglobin variants, elevated hemoglobin F level or other causes of hemolytic anemia. HbA1c may not accurately reflect glycemic control when clinical conditions that affect erythrocyte survival are present. Severe Iron deficiency anemia may yield falsely high results. Hemoglobin A1c assay should not be used to diagnose or monitor diabetes in patients with malignancy, recent blood transfusion, chronic kidney or liver disease. This method may yield falsely low results when hemoglobin (HbF) exceeds 5% in the specimen. The Bahena Alinity assay for the measurement of HbA1c is a National Glycohemoglobin Standardization Program (NGSP) certified method. Armando Joshi MD LAB - CHEMISTRY ORDERABLES Fin al Result Performing Organization Address City/[facility] Co de Phone Number [facility] [address] [place] [address] * TYPE + SCREEN PANEL (02/15/2025 10:38 AM CDT) ABO Rh B POS 02/15/2025 11:53 AM CDT [facility] B[facility] LAB Comment:History checked. Antibody Screen NEG 11:53 AM CDT [facility] B[facility] LAB Blood Bank BLOOD SPECIMEN / Unknown Venipuncture / Unknown 02/15/2025 10:38 AM CDT 02/15/2025 11:15 AM CDT Armando Joshi MD LAB - BLOOD BANK ORDERABLES Fi nal Result Performing Organization Address City/[facility]/ZIP Co de Phone Number [facility] B[facility]OD [facility] LAB [address] [place] [address] * CBC W AUTO DIFFERENTIAL (02/15/2025 10:38 AM CDT) [facility] WBC 8.4 4.0 - 10.7 x10E9/L 02/15/2025 11:23 AM CDT [facility] RBC Count 4.31 3.90 - 5.20 x10E12/L 02/15/2025 11:23 AM CDT [facility] Hemoglobin 13.8 11.9 - 15.8 g/dL 02/15/2025 11:23 AM CDT [facility] Hematocrit 40.5 34.8 - 46.1 % 02/15/2025 11:23 AM CDT [facility] MCV 94.0 80.0 - 98.0 fL 02/15/2025 11:23 AM CDT [facility] MCH 32.0 26.7 - 33.6 pg 02/15/2025 11:23 AM CDT [facility] MCHC 34.1 31.7 - 36.3 g/dL 02/15/2025 11:23 AM CDT [facility] RDW-CV 12.8 11.3 - 14.8 % 02/15/2025 11:23 AM CDT [facility] Platelet Count 267 150 - 420 x10E9/L 02/15/2025 11:23 AM CDT [facility] MPV 10.3 7.8 - 11.4 fL 02/15/2025 11:23 AM CDT [facility] Neutrophil % 70.9 41.0 - 74.0 % 02/15/2025 11:23 AM CDT [facility] Lymphocyte % 21.4 17.0 - 47.0 % 02/15/2025 11:23 AM CDT [facility] Monocyte % 5.1 3.0 - 11.0 % 02/15/2025 11:23 AM CDT [facility] Eosinophil % 2.0 0.0 - 7.0 % 02/15/2025 11:23 AM CDT [facility] Basophil % 0.2 0.0 - 1.6 % 02/15/2025 11:23 AM CDT [facility] Immature Granulocytes % 0.4 0.0 - 1.0 % 02/15/2025 11:23 AM CDT [facility] Neutrophil Absolute 5.98 1.60 - 7.50 x10E9/L 02/15/2025 11:23 AM CDT [facility] Lymphocyte Absolute 1.80 1.00 - 4.40 x10E9/L 02/15/2025 11:23 AM CDT [facility] Monocyte Absolute 0.43 0.15 - 1.00 x10E9/L 02/15/2025 11:23 AM CDT [facility] Eosinophil Absolute 0.17 0.00 - 0.60 x10E9/L 02/15/2025 11:23 AM CDT [facility] Basophil Absolute 0.02 0.00 - 0.13 x10E9/L 02/15/2025 11:23 AM CDT [facility] Blood BLOOD SPECIMEN / Unknown Venipuncture / Unknown 02/15/2025 10:38 AM CDT 02/15/2025 11:16 AM CDT Armando Joshi MD LAB - HEMATOLOGY ORDERABLES Fi nal Result Performing Organization Address City/[facility]/ZIP Co de Phone Number [facility] [address] [place], [place] [id number] * HEPATITIS B SURFACE ANTIGEN W RFLX CONFIRMATION (02/15/2025 10:38 AM CDT) Pathologist [facility] HBsAg Non Reactive Non Reactive 02/15/2025 11:59 AM CDT [facility] Blood BLOOD SPECIMEN / Unknown Venipuncture / Unknown 02/15/2025 10:38 AM CDT 02/15/2025 11:15 AM CDT Armando Joshi MD LAB - CHEMISTRY ORDERABLES Fin al Result [facility] [address] [place], [place] [id number] * HEPATITIS C ANTIBODY (02/15/2025 10:38 AM CDT) Pathologist [facility] HCV Antibody Screen Non Reactive Non Reactive 02/15/2025 11:58 AM CDT [facility] Blood BLOOD SPECIMEN / Unknown Venipuncture / Unknown 02/15/2025 10:38 AM CDT 02/15/2025 11:15 AM CDT Narrative [facility] - 02/15/2025 11:58 AM CDT Non Reactive - Antibodies to Hepatitis C virus (HCV) were not detected, result does not exclude early acute HCV infection. Armando Joshi MD LAB - CHEMISTRY ORDERABLES Fin al Result Performing Organization Address City/[facility]/ZIP Co de Phone Number [facility] [address] [place] [phone] * FERRITIN (02/15/2025 10:38 AM CDT) Ferritin 110 5 - 204 ng/mL 02/15/2025 12:02 PM CDT [facility] Blood BLOOD SPECIMEN / Unknown Venipuncture / Unknown 02/15/2025 10:38 AM CDT 02/15/2025 11:16 AM CDT Armando Joshi MD LAB - CHEMISTRY ORDERABLES Fin al Result Performing Organization Address [facility] de Phone Number [facility] [address] [place] [address] * (ABNORMAL) URINALYSIS - POCT (IP) BEAKER INTERFACE (02/15/2025 8:59 AM CDT) Color UA POCT Yellow Straw, Yellow, Dark Yellow, Light Yellow 02/15/2025 9:01 AM CDT [facility] Clarity UA POCT Clear Clear 9:01 AM CDT [facility] Specific Randolph UA POCT 1.015 1.005 - 1.030 02/15/2025 9:01 AM CDT [facility] pH UA POCT 6.0 5.0 - 8.0 pH 02/15/2025 9:01 AM CDT [facility] Protein UA POCT Negative Negative 9:01 AM CDT [facility] Blood UA POCT Trace-lysed (A) Negative 02/15/2025 9:01 AM CDT [facility] Leukocyte UA POCT Negative Negative 02/15/2025 9:01 AM CDT [facility] Nitrite UA POCT Negative Negative 9:01 AM CDT [facility] Glucose UA POCT Negative Negative 9:01 AM CDT [facility] Ketone UA POCT Negative Negative 02/15/2025 9:01 AM CDT [facility] Bilirubin UA POCT Negative Negative 02/15/2025 9:01 AM CDT [facility] Urobilinogen UA POCT 0.2 0.1 - 1.0 EU/dL 02/15/2025 9:01 AM CDT [facility] Urine URINE / Unknown 02/15/2025 8 :59 AM CDT 02/15/2025 9:01 AM CDT us Duran Mc MD LAB - POINT OF CARE ORDERABLES Final Result [facility] [address] [place], [place] [phone] * Sonogram - Complete (02/15/2025 8:24 AM CDT) Linked Results Indication ======== Confirm viability of fetus Advanced maternal age (AMA), multigravida Seizure disorder complicating Keppra Family history of other condition maternal history of arteriovenous malformation History ====== OB History 3. Para 2 [id number] 1. live 2017. Gest. age 37 w + 2 d. Weight 2,523 g. Details: Vaginal delivery 2. live 2019. Gest. age 38 w + 5 d. Weight 2,930 g. Details: Vaginal delivery, GDM A1, intraamniotic infection Maternal Assessment Physical Exam Height 152 cm, 5 ft 0 in. Weight 75 kg, 165 lb. Initial weight 75 kg, 165 lb. BMI 32.22 kg/m . Initial BMI 32.22 kg/m . Weight gain 0 kg, 0 lb Method ====== Transabdominal Ultrasound. View: Sufficient ========= Heart . Number of fetuses: 1 Dating ====== Date Details Gest. age BOOGIE U/S 02/15/2025 based upon CRL 10 w + 6 d 09/07/2025 Assigned dating based on ultrasound (CRL), selected on 02/15/2025 10 w + 6 d 09/07/2025 General Evaluation Cardiac activity present Amniotic fluid: appears normal Biometry FHR 172 bpm CRL 39.7 mm 10w 6d 27% Hadlock Anatomy Face: nasal bone visualized. The following structures could not be adequately visualized: Kidneys. Bladder. The following structures were visualized: Cranium. Heart. Stomach. Spine. Arms. Legs. Maternal Structures Right Ovary Normal Left Ovary Normal Impression ========= Single, live, intrauterine at 10w6d Comment ======== ultrasound alone cannot detect all structural, genetic, or functional , placental, or maternal abnormalities Follow-up ======== Ultrasound in 6 weeks for early anatomy given h/o seizure d/o Ultrasound at around 20 weeks for anatomy, size and cervical length Coding ====== Diagnoses Z84.89: Family history of other specified conditions O99.351, G40.909: Diseases of the nervous system complicating ,Epileps y, unspecified, not intractable, without status epilepticus O09.521: Supervision of elderly multigravida O36.80X0: with inconclusive viability Procedures 60738: 1st Trimester [facility] Replenish PACS Anatomical Region Laterality Modality Other 02/15/2025 8:24 AM CDT us Duran Mc MD [facility] ORDERABLES Edited Result - Final * ANEUPLOIDY SCREENING (02/15/2025) Trisomy 21 Low Risk Trisomy 18 Low Risk Trisomy 13 Low Risk Monosomy X Low Risk Triploidy/Heidi shing Twin NIPT Low Risk Blood BLOOD SPECIMEN / Unknown 02/15/2025 Narrative [facility] - 02/22/2025 10:09 AM CDT LOW RISK Predicted Sex: male Fraction: 8.3% Panoramo - Josi Screen Hard copy results available in Media. Armando Joshi MD LAB - CHEMISTRY ORDERABLES Fin al Result * CULTURE STREP B (12/03/2019 9:40 AM CDT) Culture Strep B Negative for beta-hemolytic Streptococcus Group B JONATHAN 12/05/2019 3:13 PM CDT [facility] Microbiology MISCELLANEOUS SAMPLES / Unknown Collection / Unknown 12/03/2019 9:40 AM CDT 12/03/2019 9:56 AM CDT Liss Schwartz DO LAB - MICROBIOLOGY ORDERAB LES Final Result Performing Organization Address City/State/[facility] Co de Phone Number [facility] [address] [place] [address], [facility] [phone] * (ABNORMAL) GTT 3 HR (100G) GESTATIONAL DIAGNOSTIC (10/02/2019 8:34 AM CDT) Glucose Dose Gestational 100 gm 10/02/2019 11:58 AM CDT [facility] Gestational GTT Fasting 87 70 - 105 mg/dL 10/02/2019 11:58 AM CDT [facility] Gestational GTT 1 HR 198(H) 50-<180 mg/dL 10/02/2019 11:58 AM CDT [facility] Gestational GTT 2 HR 183(H) 50-<155 mg/dL 10/02/2019 11:58 AM CDT [facility] Gestational GTT 3 HR 111 50-<140 mg/dL 10/02/2019 11:58 AM CDT [facility] Blood BLOOD SPECIMEN / Unknown Venipuncture / Unknown 10/02/2019 8:34 AM CDT 10/02/2019 8:34 AM CDT Puja Nazario MD LAB - CHEMISTRY ORDERABLES Fin al Result [facility] [address] [place] [address] from Last 3 Months or Most Recently Relevant to Health Maintenance Insurance [facility] [place] [address] [place] [address] [facility] Care Address: [address] [phone] Advance Directives * Full Code (Latest Code Status on File) Date Activated Date Inactivated Comments 12/21/2019 1:29 PM 12/24/2019 3:34 PM * Full Code Date Activated Date Inactivated Comments 11/13/2017 7:13 PM 11/16/2017 4:03 PM * Full Code Date Activated Date Inactivated Comments 11/13/2017 5:55 PM 11/13/2017 7:13 PM Care Teams Badger Distiller Operator Relationship Specialty Start Date End Date Sanjeev Walter MD PCP - General Internal Medicine 12/30/17
== END 2025-03-04 10:09 | disposition home or self-care (01) ==
PROVIDERS: PCP Physician Assistant; Visit Provider Psychiatry & Neurology Neurology
DX: G40.909 Epilepsy, unspecified, not intractable, without status epilepticus (principal)
CPT/HCPCS: 80177

== ENCOUNTER 2025-05-24 08:24 | Outpatient (CLI) | payer OTHER, SELFPAY ==
--- OUTSIDE RECORDS SUMMARY | 2025-05-24 08:33 | XMS_ITS | Encounter Summary ---
Author Organization [facility] Address [address] [place] [address] Care Team Providers Care Classified Advertising Manager Name Role Phone Sanjeev Walter MD Primary Care Provider + [phone] Encounter Details Date Type Department Care Team (Late st Contact Info) Description 04/22/2025 Results Follow-Up [facility]/ EVALUATION UNIT [address] [place] [address] Rafia Barnes MD [address] [place] [address] Social History Tobacco Use Types Packs/Day Years [...] care, and heating? Not very hard 02/15/2025 [facility] Occupat ional [facility] - Occupational Stress [...] things needed for daily living? No 02/15/2025 [place] Depression Scale Answer Date Recorded [place] Depression Scale Total 0 02/15/2025 The thought [...] any time in the past 12 [facility], were you homeless or living in a custodial (including now)? No 02/15/2025 Estimated Date of Delivery Comme nts Yes 09/07/2025 Based on Ultraso und Sex and Gender Information Value Date Recorded Sex Assigned at Not on file Legal Sex Female 6:26 AM [employer] Gender Identity Not on file Sexual Orientation [...] Swan RN * Does person have difficulty dressing/bathing? Answer Date of Assessment Author No 12/21/2019 1:30 PM Mariluz Swan RN * Does person have difficulty doing errands alone? Answer Date of Assessment Author No 12/21/2019 1:30 PM Mariluz Swan RN documented as of this encounter Mental Status * Does person have difficulty concentrating/remembering/making decisions? Answer Entry Date Author No 12/21/2019 1:30 PM CDT Koroma, Mariluz A, RN documented in this encounter Plan of Treatment Not on file documented as of this encounter Visit Diagnoses Not on filedocumented in this encounter Care Teams Classified Advertising Manager Relationship Specialty Start Date End Date Sanjeev Walter MD PCP - General Internal Medicine 12/30/17 documented as of this encounter
--- OUTSIDE RECORDS SUMMARY | 2025-05-24 08:33 | XMS_ITS | Clinical Summary ---
Author Organization [facility] Address [address] [place] [address] Care Team Providers Care Application Release Manager Name Role Phone Sanjeev Walter MD Primary Care Provider + [phone] Source Comments [facility],non-owned Affiliates and Associated Physician Practices is amultiple site organization consisting of ambulatory clinics and hospital sitesin [place], [place], [place] and [place]. This disclosure is being madepursuant to the Care Everywhere program and may not contain all information available regarding this patient. Last updated 18.[facility] Allergies No known active allergies Medications * Be aware that medications may not be up to date on this document. Alwaysverify current medications with the patient. docusate sodium (COLACE) 100 MG capsule Take 1 capsule by mouth 2 times daily 60 capsule 1 8 Active Vit-Fe Fumarate-FA ( LOW IRON) tablet Take 1 tablet by mouth once daily 100 tablet 5 0 Active Additional Information Patient not taking.Reported on 05/17/2025 acetaminophen (TYLENOL) 500 MG tablet Take 1 (one) tablet by mouth every 6 hours as needed (cold sinus) Maximum allowable Acetaminophen amount = 4 Grams (4000 mg) / 24 hours. Active folic acid (Folvite) 1 MG tablet Take 1 (one) tablet by mouth once daily Take five tablets by mouth once daily Active aspirin EC (Ecotrin) 81 MG tablet Take 2 tablets (162mg) by mouth daily for pre-eclampsia prevention. 90 tablet 3 5 Active plus iron (Natatab) 29-1 MG tablet Take 1 (one) tablet by mouth once daily 90 tablet 3 5 Active levETIRAcetam (Keppra) 750 MG tablet Take 2 (two) tablets by mouth 2 times daily 120 tablet 3 5 Active Active Problems Patient Care Coordination No te Formatting of this note migh t be different from the original. [facility] 09/201710/15/19 Enrolled in diaper program form completed and diapers given 11/25/19 Diaper bank form completed. Diapers provided. 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 AVM resolved on subsequent imaging. Belizean speaking patient 09/19/2017 Obesity affecting in second trimester Advanced maternal age in multigravida, third tri mester Estimated Date of Delivery Comme nts Yes 09/07/2025 Based on Ultraso und Resolved Problems Problem Noted Date Diagnosed Date Resolved Date care following vaginal delivery 01/29/2020 04/19/2025 heart rate deceleratio ns affecting management of mother 12/21/2019 04/19/2025 Gestational diabetes mellitu s (GDM) in third trimester 10/09/2019 04/19/2025 Threatened labor at term 11/13/2017 Supervision of high risk pre gnancy in third trimester 09/19/2017 04/19/2025 Stroke 09/19/2017 12/03/2019 Obesity 09/19/2017 09/03/2019 Chlamydia 09/19/2017 09/03/2019 38 weeks gestation of 04/19/2025 Encounters Date Type Department Care Team Description 05/21/2025 Telephone [facility] [place] [address] Lizbeth Madrigal Appointment; Insurance Issue/question 05/17/2025 8:14 AM RETAINING ROOM CUTTER - 05/17/2025 11:59 PM RETAINING ROOM CUTTER Hospital Encounter [facility] [address] [place] [address] Duran Mc MD Wendel, Michael, MD Discharge Disposition: Home or Self Care 05/17/2025 8:14 AM RETAINING ROOM CUTTER - 05/17/2025 11:59 PM RETAINING ROOM CUTTER Hospital Encounter [facility] [address] [place] [address] Duran Mc MD Discharge Disposition: Home or Self Care 05/17/2025 Travel 05/03/2025 8:14 AM CDT - 05/03/2025 11:59 PM CDT Hospital Encounter [facility] [address] [place] [address] Duran Mc MD Discharge Disposition: Home or Self Care 04/22/2025 Telephone [facility] [address] [place] [address] Mariluz Sanchez MD Results 04/22/2025 Results Follow-Up [facility] [address] [place] [address] Rafia Barnes MD 04/21/2025 Telephone [facility] [address] [place] [address] Lizbeth Madrigal Appointment 04/21/2025 Telephone [facility] [address] [place] [address] Kirti Bowen Scheduling 04/19/2025 8:34 AM CDT - 04/19/2025 11:59 PM CDT Hospital Encounter [facility] [address] [place] [address] Mariluz Mao MD Keller, Justine M, MD Discharge Disposition: Home or Self Care 04/19/2025 8:34 AM CDT - 04/19/2025 11:59 PM CDT Hospital Encounter [facility] [address] [place] [address] Mariluz Mao MD Discharge Disposition: Home or Self Care 03/18/2025 8:16 AM CDT - 03/18/2025 11:59 PM CDT Hospital Encounter [facility] [address] [place] [address]. [address] [place] [address] Duran Mc MD Wendel, Michael, MD Discharge Disposition: Home or Self Care 03/18/2025 8:16 AM CDT - 03/18/2025 11:59 PM CDT Hospital Encounter [facility] [address] [place] [address]. [address] [place] [address] Duran Mc MD Discharge Disposition: Home or Self Care 02/22/2025 Telephone [facility] [address] [place] [address]. [address] [place] [address] Jaymie To RN Results from Last 3 Months Immunizations Immunization Administration Dates Next Due INFLUENZA VACCINE, QUADR. (F LUZONE; FLULAVAL; FLUARIX; AFLURIA QUADRIVALENT; 6MO+), 0.5 ML (IIV4) 09/03/2019 INFLUENZA VACCINE, TRIV. (FL UZONE; FLULAVAL; FLUARIX; AFLURIA TRIVALENT; 6MO+), 0.5 ML (IIV3) 05/17/2025 MMR 12/23/2019(Deferred: See Comments - Rubella Immune) [...] care, and heating? Not very hard 02/15/2025 [facility] - Occupational Stress [...] things needed for daily living? No 02/15/2025 [place] Depression Scale Answer Date Recorded [place] Depression Scale Total 0 02/15/2025 The thought [...] any time in the past 12 [facility], were you homeless or living in a fci (including now)? No 02/15/2025 Estimated Date of Delivery Comme nts Yes 09/07/2025 Based on Ultraso und Sex and Gender Information Value Date Recorded Sex Assigned at Not on file Legal Sex Female 6:26 AM RETAINING ROOM CUTTER Gender Identity Not on file Sexual Orientation Not on file Last Filed Vital Signs Vital Sign Reading Time Taken Comments Blood Pressure 112/74 05/17/2025 9:17 AM RETAINING ROOM CUTTER Pulse 76 05/17/2025 9:17 AM RETAINING ROOM CUTTER Temperature 36.4 C (97.6 F) 01/29/2020 8:34 AM CDT 97.4 visitor Respiratory Rate 18 01/29/2020 8:34 AM CDT Oxygen Saturation 100% 12/24/2019 8:30 AM CDT Inhaled Oxygen Concentration - - Weight 82.6 kg (182 lb) 05/17/2025 9:17 AM RETAINING ROOM CUTTER Height 155.4 cm (5' 1.2) 02/15/2025 8:55 AM CDT Body Mass Index 34.16 02/15/2025 8:55 AM CDT Plan of Treatment Health Maintenance Due Date Last Done Comments LIPID TESTING 1983 MAMMOGRAM 1983 HEPATITIS B VACCINE (1 of 3 - 19+ 3-dose series) 2002 HPV VACCINE (1 - 3-dose SCDM series) 2010 DEPRESSION SCREENING 07/15/2024 COVID-19 VACCINE ( season) 2025 OB-ONE HOUR GLUCOSE 06/01/2025 10/02/2019, 10/01/2019, 10/03/2017, Additional history exists OB-TDAP CURRENT 06/08/20252019, 10/01/2019, 09/19/2017 Respiratory Syncytial Virus (RSV) Vaccine Pt: or over 60 yrs (1 - Risk 1-dose series) 07/13/2025 OB-GROUP B STREP SCREEN 08/03/2025 12/03/2019, 11/07 SCREENING FOR DIABETES 02/16/2028 , 12/24/2019, 12/22/2019, Additional history exists DTAP/TDAP/TD VACCINES (3 - Td or Tdap) 09/30/2029 10/01/2019, 09/19/2017 PAP with HPV 02/15/2030 02/15/2025, 09/19/2017 ZOSTER VACCINE (1 of 2) 2033 HEPATITIS C SCREENING Completed 02/15/2025 HIV SCREENING Completed 02/15/2025, 09/12, 08/05/2019, Additional history exists INFLUENZA VACCINE Completed 05/17/2025, , 09/03/2019, Additional history exists HIB VACCINE Aged Out [...] Procedure Name Priority Date/Time Associated Diagnosis Comments LEVETIRACETAM LEVEL Routine 05/17/2025 9 :57 AM RETAINING ROOM CUTTER Seizure disorder (HCC) URINALYSIS - POCT (IP) BEAKER INTERFACE Routine 05/17/2025 9:20 AM RETAINING ROOM CUTTER SONOGRAM - COMPLETE Routine 05/17/2025 8 :41 AM RETAINING ROOM CUTTER Encounter for follow-up ultrasound of anatomy (HCC) SONOGRAM - TRANSVAGINAL Routine 05/03/2025 8:44 AM CDT Encounter for screening for cervical length (HCC) LEVETIRACETAM LEVEL Routine 04/19/2025 1 1:18 AM CDT Supervision of high risk in third trimester (HCC) URINALYSIS - POCT (IP) BEAKER INTERFACE Routine 04/19/2025 10:06 AM CDT SONOGRAM - COMPLETE Routine 04/19/2025 8 :45 AM CDT Gestational diabetes mellitus (GDM) in third trimester, gestational diabetes method of control unspecified (HCC) Seizure disorder (HCC) Obesity affecting in second trimester, unspecified obesity type (HCC) Maternal morbid obesity, antepartum (HCC) CULTURE URINE Routine 03/18/2025 10:21 AM CDT Asymptomatic bacteriuria during (HCC) URINALYSIS - POCT (IP) BEAKER INTERFACE Routine 03/18/2025 9:58 AM CDT SONOGRAM - COMPLETE Routine 03/18/2025 9 :19 AM CDT PAP IG LB+HPV APTIMA Routine 02/15/2025 10:40 AM CDT Supervision of high risk in third trimester (HCC) HEMOGLOBIN A1C Routine 02/15/2025 10:38 AM CDT Supervision of high risk in third trimester (HCC) HEPATITIS C ANTIBODY Routine 02/15/2025 10:38 AM CDT Supervision of high risk in third trimester (HCC) HIV-1 HIV-2 ANTIBODY + HIV P24 AG PANEL Routine 02/15/2025 10:38 AM CDT Supervision of high risk in third trimester (HCC) CULTURE STREP B Routine 12/03/2019 9:40 AM CDT , unspecified gestational age GTT 3 HR (100G) GESTATIONAL DIAGNOSTIC Routine 10/02/2019 8:34 AM CDT Elevated blood sugar from Last 3 Months or Most Recently Relevant to Health Maintenance Results * LEVETIRACETAM LEVEL (05/17/2025 9:57 AM RETAINING ROOM CUTTER) Only the most recent of2 resultswithin the time period is included. Pathologist [facility] Levetiracetam 11.43 10 - 40 ug/mL 05/17/2025 11:29 AM RETAINING ROOM CUTTER [facility] Blood BLOOD SPECIMEN / Unknown Venipuncture / Unknown 05/17/2025 9:57 AM RETAINING ROOM CUTTER 05/17/2025 10:48 AM RETAINING ROOM CUTTER Armando Joshi MD LAB - THERAPEUTIC DRUG MONITOR ING ORDERABLES Final Result [facility] [address] [place] [id number] * (ABNORMAL) URINALYSIS - POCT (IP) BEAKER INTERFACE (05/17/2025 9:20 AM RETAINING ROOM CUTTER) Only the most recent of3 resultswithin the time period is included. Color UA POCT Yellow Straw, Yellow, Dark Yellow, Light Yellow 05/17/2025 9:23 AM RETAINING ROOM CUTTER [facility] Clarity UA POCT Clear Clear 9:23 AM RETAINING ROOM CUTTER [facility] Specific Lefor UA POCT 1.015 1.005 - 1.030 05/17/2025 9:23 AM RETAINING ROOM CUTTER [facility] pH UA POCT 6.5 5.0 - 8.0 pH 05/17/2025 9:23 AM RETAINING ROOM CUTTER [facility] Protein UA POCT Negative Negative 9:23 AM RETAINING ROOM CUTTER [facility] Blood UA POCT Trace-intac t(A) Negative 05/17/2025 9:23 AM RETAINING ROOM CUTTER [facility] Leukocyte UA POCT Negative Negative 05/17/2025 9:23 AM RETAINING ROOM CUTTER [facility] Nitrite UA POCT Negative Negative 9:23 AM RETAINING ROOM CUTTER [facility] Glucose UA POCT Negative Negative 9:23 AM RETAINING ROOM CUTTER [facility] Ketone UA POCT Negative Negative 05/17/2025 9:23 AM RETAINING ROOM CUTTER [facility] Bilirubin UA POCT Negative Negative 05/17/2025 9:23 AM RETAINING ROOM CUTTER [facility] Urobilinogen UA POCT 0.2 0.1 - 1.0 EU/dL 05/17/2025 9:23 AM RETAINING ROOM CUTTER [facility] Urine URINE / Unknown 05/17/2025 9 :20 AM RETAINING ROOM CUTTER 05/17/2025 9:23 AM RETAINING ROOM CUTTER Armando Joshi MD LAB - POINT OF CARE ORDERABLES Final Result Performing Organization Address City/State/[facility] Co de Phone Number [facility] [address] [place] [address] * Sonogram - Complete (05/17/2025 8:41 AM RETAINING ROOM CUTTER) Only the most recent of3 resultswithin the time period is included. Linked Results Indication ======== Incomplete anatomy Advanced maternal age (AMA), multigravida Seizure disorder complicating Family history of other condition Maternal obesity complicating , class 1 (BMI 30.0 - 34.9) History ====== OB History 3. Para 2 [id number] 1. live 2017. Gest. age 37 w + 2 d. Weight 2,523 g. Details: Vaginal delivery 2. live 2019. Gest. age 38 w + 5 d. Weight 2,930 g. Details: Vaginal delivery, GDM A1, intraamniotic infection Lab Tests Test Date Result NIPT Low risk, Male Maternal Assessment Physical Exam Height 152 cm, 5 ft 0 in. Weight 83 kg, 182 lb. Initial weight 75 kg, 165 lb. BMI 35.54 kg/m . Initial BMI 32.22 kg/m . Weight gain 8 kg, 17 lb Method ====== Transabdominal ultrasound. View: Sufficient ========= Heart . Number of fetuses: 1 Dating ====== Date Details Gest. age BOOGIE Stated BOOGIE 23 w + 6 d 09/07/2025 U/S 05/17/2025 based upon AC, BPD, Femur, HC 23 w + 6 d 09/07/2025 Assigned dating based on stated BOOGIE, selected on 03/18/2025 23 w + 6 d 09/07/2025 General Evaluation Cardiac activity present. FHR 154 bpm. Presentation: cephalic Placenta: Placental site: anterior Umbilical cord: Cord vessels: 3 vessel cord - previously documented. Insertion site: normal insertion - previously documented Amniotic fluid: Amount of AF: normal. MVP 6.1 cm Biometry BPD 58.0 mm 23w 5d 40% Hadlock HC 214.8 mm 23w 4d 21% Hadlock AC 192.2 mm 24w 0d 44% Hadlock Femur 43.0 mm 24w 0d 44% Hadlock Humerus 39.0 mm 23w 6d 39% Marcia HC / AC 1.12 Weight Calculation: EFW 644 g 45% Hadlock EFW (lb,oz) 1 lb 7 oz EFW by Hadlock ([id number]) appropriate Growth Overview Exam date GA BPD (mm) HC (mm) AC (mm) FL (mm) HL (mm) EFW (g) 03/18/2025 15w 2d 29.2 43% 111.9 40% 99 75% 18.6 55% 18.1 54% 132 66% 04/19/2025 19w 6d 44.8 36% 167.9 24% 147.9 52% 31.2 36% 29 38% 316 44% 05/17/2025 23w 6d 58 40% 214.8 21% 192.2 44% 43 44% 39 39% 644 45% Anatomy The following structures appear normal: Heart / Thorax Great vessels. Abdomen Stomach. Kidneys. Bladder. Extremities / Skeleton Left hand. The following structures were documented previously: Head / Neck Cranium. Lateral ventricles. Choroid plexus. Midline falx. Cavum septi pellucidi. Cerebellum. Cisterna magna. Thalami. Nuchal fold. Face Lips. Profile. Nose. Nasal bone. Orbits. Heart / Thorax 4-chamber view. RVOT view. LVOT view. 3-vessel view. 4-jsgxto-igwmsqf view. Situs. Aortic arch view. Bicaval view. Ductal arch view. Right lung. Left lung. Diaphragm. Abdomen Cord insertion. Bowel. Genitals. Spine Cervical spine. Thoracic spine. Lumbar spine. Sacral spine. Extremities / Skeleton Arms. Hands. Right hand. Legs. Feet. sex: male. Impression ========= Single, live, intrauterine at 23w6d The size is AGA The amniotic fluid volume is normal No major malformations were seen within the limits of ultrasound Comment ======== ultrasound alone cannot detect all structural, genetic, or functional , placental, or maternal abnormalities Follow-up ======== Follow up ultrasound in 4 weeks to assess size Coding ====== Diagnoses Z84.89: Family history of other specified conditions O99.352, G40.909: Diseases of the nervous system complicating ,Epileps y, unspecified, not intractable, without status epilepticus O09.522: Supervision of elderly multigravida Z36.3: Encounter for screening for malformations O99.212, E66.811: Obesity complicating , class 1 (BMI 30.0 - 34.9) Procedures 74957: US Preg Uterus Follow Up [facility] PACS Anatomical Region Laterality Modality Other 05/17/2025 8:41 AM RETAINING ROOM CUTTER Duran Mc MD [facility] ORDERABLES Edited Result - Final * Sonogram - Transvaginal (05/03/2025 8:44 AM CDT) Linked Results Indication ======== screening for cervical length Incomplete anatomy Advanced maternal age (AMA), multigravida 41 Seizure disorder complicating Family history of other condition Maternal obesity complicating , class 2 (BMI 35.0 - 39.9) screening for cervical length screening for malformation History ====== OB History 3. Para 2 [id number] 1. live 2017. Gest. age 37 w + 2 d. Weight 2,523 g. Details: Vaginal delivery 2. live 2019. Gest. age 38 w + 5 d. Weight 2,930 g. Details: Vaginal delivery, GDM A1, intraamniotic infection Lab Tests Test Date Result NIPT Low risk, Male Maternal Assessment Physical Exam Height 152 cm, 5 ft 0 in. Weight 83 kg, 184 lb. Initial weight 75 kg, 165 lb. BMI 35.94 kg/m . Initial BMI 32.22 kg/m . Weight gain 9 kg, 19 lb Method ====== Transabdominal and transvaginal ultrasound. View: Suboptimal view: limited by position ========= Heart . Number of fetuses: 1 Dating ====== Date Details Gest. age BOOGIE Stated BOOGIE 21 w + 6 d 09/07/2025 Assigned dating based on stated BOOGIE, selected on 03/18/2025 21 w + 6 d 09/07/2025 General Evaluation Cardiac activity present. FHR 147 bpm. Presentation: cephalic Placenta: Placental site: anterior Umbilical cord: Cord vessels: 3 vessel cord - previously documented. Insertion site: normal insertion - previously documented Amniotic fluid: Amount of AF: normal. MVP 4.5 cm Anatomy The following structures appear normal: Heart / Thorax 3-vessel view. Aortic arch view. Abdomen Stomach. Kidneys. Bladder. Extremities / Skeleton Right hand. Feet. The following structures could not be adequately visualized: Heart / Thorax Great vessels. Extremities / Skeleton Left hand. The following structures were documented previously: Head / Neck Cranium. Lateral ventricles. Choroid plexus. Midline falx. Cavum septi pellucidi. Cerebellum. Cisterna magna. Thalami. Nuchal fold. Face Lips. Profile. Nose. Nasal bone. Orbits. Heart / Thorax 4-chamber view. RVOT view. LVOT view. 2-rjmnlo-phxxlbn view. Situs. Bicaval view. Ductal arch view. Right lung. Left lung. Diaphragm. Abdomen Cord insertion. Bowel. Genitals. Spine Cervical spine. Thoracic spine. Lumbar spine. Sacral spine. Extremities / Skeleton Arms. Legs. sex: male. Maternal Structures Cervix reassuring Approach - Transvaginal: Cervical length 4.97 cm Two cystic areas adjacent to cervical canal 1) near external os measuring 1.0 x 0.5 x 0.6 cm appears cystic 2) mid canal measuring 1.3 x 0.6 x 1.0 cm hypoechoic area within (possibly a polyp) Impression ========= Single, live, intrauterine at 21w6d The amniotic fluid volume is normal Reassuring cervical length Nabothian cysts at distal cervix (near external os) Likely intra cervical canal polyp Small cystic areas in cervical canal- cysts vs polyps Near complete anatomic survey No malformations seen within the limitations of ultrasound Comment ======== ultrasound alone cannot detect all structural, genetic, or functional , placental, or maternal abnormalities Findings explained to patient via formal medical interpreter Follow-up ======== Follow up ultrasound in 2 weeks for growth and to complete anatomic survey (previously scheduled) Coding ====== Diagnoses Z84.89: Family history of other specified conditions O99.352, G40.909: Diseases of the nervous system complicating ,Epileps y, unspecified, not intractable, without status epilepticus O09.522: Supervision of elderly multigravida O99.212, E66.812: Obesity complicating , class 2 (BMI 35.0 - 39.9) Z36.3: Encounter for screening for malformations Z36.86: Encounter for screening for cervical length Procedures 38228: US Uterus Limited 58451: US Preg Uterus Transvaginal [facility] PACS Anatomical Region Laterality Modality Other 05/03/2025 8:44 AM CDT Duran Mc MD [facility] ORDERABLES Edited Result - Final * CULTURE URINE (03/18/2025 10:21 AM CDT) Culture Urine More than 2 organisms seen at >=50,000 CFU/mL. Recollect if clinically indicated. JONATHAN 03/19/2025 10:15 PM CDT [facility] Urine URINE SPECIMEN OBTAINED BY CLEAN CATCH PROCEDURE / Unknown Collection / Unknown 03/18/2025 10:21 AM CDT 03/18/2025 11:12 AM CDT Armando Joshi MD LAB - MICROBIOLOGY ORDERABLES Final Result [facility] [address] [place] [address], [facility] [phone] * PAP IG LB+HPV APTIMA (02/15/2025 10:40 AM CDT) Diagnosis Comment 02/17/2025 2:10 PM CDT [facility] ([facility]) Comment:NEGATIVE FOR INTRAEP ITHELIAL LESION OR MALIGNANCY. Specimen Adequacy Comment 025 2:10 PM CDT [facility] ([facility]) Comment: Satisfactory for evaluation. Endocervical and/or squamous metaplastic cells (endocervical component) are present. Performed by Comment 02/17/2025 2:10 PM CDT [facility] ([facility]) Comment:Shell Ramirez logisyusef (ASCP) Comment . 02/17/2025 2:10 PM CDT [facility] ([facility]) Note Comment 02/17/2025 2:10 PM CDT [facility] ([facility]) Comment: The Pap smear is a screening test designed to aid in the detection of premalignant and malignant conditions of the uterine cervix. It is not a diagnostic procedure and should not be used as the sole means of detecting cervical cancer. Both false-positive and false-negative reports do occur. IGLBP CPT Code Automation Comment 02/17/2025 2:10 PM CDT [facility] ([facility]) Comment: This liquid based ThinPrep(R) pap test was screened with the use of an image guided system. Human papillomavirus Aptima Negative Negative 02/17/2025 2:10 PM CDT [facility] ([facility]) Comment: This nucleic acid amplification test detects fourteen high-risk HPV types (16,18,31,33,35,39,45,51,52,56,58,59,66,68) without differentiation. Pathology/Cytolo gy ENTIRE ENDOCERVIX / Unknown Collection / Unknown 02/15/2025 10:40 AM CDT 02/15/2025 11:13 AM CDT Narrative [facility] ([facility]) - 02/17/2025 2:10 PM CDT Performed at: 01 - [address] [id number] Lamp Shade Maker: Soni Dennis MD, Phone: [phone] Performed at: 02 - [address] [id number] Lamp Shade Maker: Soni Dennis MD, Phone: [phone] Specimen Comment: Source.............Cervix;Endocervix Specimen Comment: No. of containers..01 ThinPrep Vial Armando Joshi MD LAB - PATHOLOGY/CYTOLOGY ORDER BERYL Final Result [facility] ([facility]) [address] [place] [address] * HIV-1 HIV-2 ANTIBODY + HIV P24 AG PANEL (02/15/2025 10:38 AM CDT) HIV1/2 Ab + P24 Ag Non Reactive Non Reactive 02/15/2025 11:58 AM CDT [facility] Blood BLOOD SPECIMEN / Unknown Venipuncture / Unknown 02/15/2025 10:38 AM CDT 02/15/2025 11:15 AM CDT Narrative [facility] - 02/15/2025 11:58 AM CDT No Laboratory evidence of HIV infection. Armando Joshi MD LAB - CHEMISTRY ORDERABLES Fin al Result Performing Organization Address [facility] Co de Phone Number [facility] [address] [place] [id number] * HEMOGLOBIN A1C (02/15/2025 10:38 AM CDT) Hemoglobin A1c 5.3 <5.7 % 02/15/2025 11:51 AM CDT [facility] Estimated Average Glucose 105 mg/dL 02/15/2025 11:51 AM CDT [facility] Blood BLOOD SPECIMEN / Unknown Venipuncture / Unknown 02/15/2025 10:38 AM CDT 02/15/2025 11:16 AM CDT Narrative [facility] - 02/15/2025 11:51 AM CDT [...] ORDERABLES Fin al Result Performing Organization Address [facility] Co de Phone Number [facility] [address] [place] [phone] * HEPATITIS C ANTIBODY (02/15/2025 10:38 AM CDT) HCV Antibody Screen Non Reactive Non Reactive 02/15/2025 11:58 AM CDT [facility] Blood BLOOD SPECIMEN / Unknown Venipuncture / Unknown 02/15/2025 10:38 AM CDT 02/15/2025 11:15 AM CDT Narrative [facility] - 02/15/2025 11:58 AM CDT Non Reactive - Antibodies to Hepatitis C virus (HCV) were not detected, result does not exclude early acute HCV infection. us Armando Joshi MD LAB - CHEMISTRY ORDERABLES Fin al Result [facility] [address] [place] [address] * CULTURE STREP B (12/03/2019 9:40 AM CDT) [facility] Culture Strep B Negative for beta-hemolytic Streptococcus Group B JONATHAN 12/05/2019 3:13 PM CDT [facility] Microbiology MISCELLANEOUS SAMPLES / Unknown Collection / Unknown 12/03/2019 9:40 AM CDT 12/03/2019 9:56 AM CDT us Liss Schwartz DO LAB - MICROBIOLOGY ORDERAB LES Final Result [facility] [address] [place] [address], [facility] [phone] * (ABNORMAL) GTT 3 HR (100G) GESTATIONAL DIAGNOSTIC (10/02/2019 8:34 AM CDT) Glucose Dose Gestational 100 gm 10/02/2019 11:58 AM CDT [facility] Gestational GTT Fasting 87 70 - 105 mg/dL 10/02/2019 11:58 AM CDT [facility] Gestational GTT 1 HR 198(H) 50-<180 mg/dL 10/02/2019 11:58 AM CDT [facility] Gestational GTT 2 HR 183(H) 50-<155 mg/dL 10/02/2019 11:58 AM CDT [facility] Gestational GTT 3 HR 111 50-<140 mg/dL 10/02/2019 11:58 AM CDT [facility] Blood BLOOD SPECIMEN / Unknown Venipuncture / Unknown 10/02/2019 8:34 AM CDT 10/02/2019 8:34 AM CDT us Puja Nazario MD LAB - CHEMISTRY ORDERABLES Fin al Result Performing Organization Address City/State/[facility] Co de Phone Number [facility] [address] [place] [address] from Last 3 Months or Most Recently Relevant to Health Maintenance Insurance Advance Directives * Full Code (Latest Code Status on File) Date Activated Date Inactivated Comments 12/21/2019 1:29 PM 12/24/2019 3:34 PM * Full Code Date Activated Date Inactivated Comments 11/13/2017 7:13 PM 11/16/2017 4:03 PM * Full Code Date Activated Date Inactivated Comments 11/13/2017 5:55 PM 11/13/2017 7:13 PM Care Teams Application Release Manager Relationship Specialty Start Date End Date Sanjeev Walter MD PCP - General Internal Medicine 12/30/17
--- OUTSIDE RECORDS SUMMARY | 2025-05-24 08:33 | XMS_ITS | Clinical Summary ---
Author Organization [facility] al Address [address] [place] [address] Care Team Providers Care Conveyor Console Operator Name Role Phone Juan Vargas MD Primary Care Provider [phone] Allergies No known active allergies Medications levETIRAcetam [...] on file Legal Sex Female 5:41 AM COMMERCIAL LOAN COORDINATOR Gender Identity Not on file Sexual Orientation Not on file Last Filed Vital Signs Vital Sign Reading Time Taken Comments Blood Pressure 116/68 08/28/2022 8:30 AM COMMERCIAL LOAN COORDINATOR Pulse 91 08/28/2022 8:30 AM COMMERCIAL LOAN COORDINATOR Temperature 36.8 C (98.3 F) 08/28/2022 5:21 AM COMMERCIAL LOAN COORDINATOR Respiratory Rate 19 08/28/2022 8:30 AM COMMERCIAL LOAN COORDINATOR Oxygen Saturation 96% 08/28/2022 8:30 AM COMMERCIAL LOAN COORDINATOR Inhaled Oxygen Concentration - - Weight 77 kg (169 lb 12.1 oz) 08/28/2022 5:25 AM COMMERCIAL LOAN COORDINATOR Height 157.5 cm (5' 2) 09/05/2013 9:21 PM COMMERCIAL LOAN COORDINATOR Body Mass Index 31.05 09/05/2013 9:21 PM COMMERCIAL LOAN COORDINATOR Plan of Treatment Health Maintenance Due Date [...] patient's age to complete this topic Insurance [facility] Care Teams Conveyor Console Operator Relationship Specialty Start Date End Date Juan Vargas MD [id number] [address] PCP - General Neurology 08/27/22
== END 2025-05-24 08:25 | disposition home or self-care (01) ==
LOC: ANHLAB 08:26
PROVIDERS: PCP Physician Assistant; Visit Provider Psychiatry & Neurology Neurology
DX: G40.909 Epilepsy, unspecified, not intractable, without status epilepticus (principal); I63.532 Cerebral infarction due to unspecified occlusion or stenosis of left posterior cerebral artery; G81.11 Spastic hemiplegia affecting right dominant side
CPT/HCPCS: 36415; 80177; 82306

== ENCOUNTER 2025-06-28 09:13 | Outpatient (CLI) | payer OTHER, SELFPAY ==
[2025-06-28 10:09] LABS: Glucose Fasting Gestational 93 mg/dL (>/=95)
[2025-06-28 12:00] LABS: Glucose 1 Hour Gest 199 mg/dL (>/=180)
[2025-06-28 12:07] LABS: Glucose 2 Hour Gest 199 mg/dL (>/= 155)
[2025-06-28 15:16] LABS: Glucose 3 Hour Gest 122 mg/dL (>/=140)
== END 2025-06-28 09:14 | disposition home or self-care (01) ==
PROVIDERS: PCP Physician Assistant
DX: R73.09 Other abnormal glucose (principal)
CPT/HCPCS: 36415; 82951; 82952